=== PATIENT | female | born 1955 | race Caucasian/White ===

== ENCOUNTER → 2018-05-02 | Outpatient (CLI) | payer OTHER ==
[~2018-05-02] MED LIST: ASPI-757 PO; CEPH500T7 PO; FAMO20TA28 PO; FLUO-202 PO; GADOBENATE 529MG/1ML 15ML VIAL IVP ONE; LISI-362 PO
--- NOTE | 2018-05-02 10:08 | RADIOLOGY IMAGING REPORT ---
FACILITY: [facility] - [place] PATIENT NAME: Corinna Olivarez : 1955 MR: [id number] V: [id number] EXAM DATE: ORDERING PHYSICIAN: ROSALVA BRYAN TECHNOLOGIST: Location: [facility] [place] Patient: Corinna Olivarez : 1955 Visit/Account:[id number] Date of Sevice: 05/02/2018 Study: MRI of the brain without and with gadolinium contrast. Indication: Exophthalmos of the left eye. Comparison study: None Contrast used: 11 mL MultiHance gadolinium contrast Technique: Multiplanar MRI sequences were obtained through the brain before and after the administrat ion of gadolinium contrast. The examination demonstrates no evidence of acute intracranial hemorrhage. There is no evidence of ex tra-axial collection or hydrocephalus. There is no abnormal signal identified within the brain parenchyma. The pituitary gland is unremarkable in appearance. There is no evidence of abnormality of the pineal gland. A diffusion-weighted sequence was performed and demonstrates no evidence of active ischemia. There is no evidence of active infarct There appears to be mild exophthalmos of the left globe. The orbits are otherwise unremarkable. There is a large retention cyst within the left maxillary sinus. There is mucosal thickening within t he maxillary antra bilaterally. Following the administration of gadolinium contrast, there is no abnormal intracranial contrast enhan cement. IMPRESSION:Unremarkable MRI of the brain without and with intravenous contrast. Report Dictated By: Erick Massey at 05/02/2018 9:53 AM Report E-Signed By: Erick Massey at 05/02/2018 10:04 AM WSN:[id number]
== END ==
LOC: MRI 02:10
PROVIDERS: ATTEND Emergency Medicine
DX: H05.242 Constant exophthalmos, left eye (principal)
CPT/HCPCS: 70553; A9577

== ENCOUNTER → 2018-05-22 | Outpatient (CLI) | payer OTHER ==
[~2018-05-22] MED LIST changes: -GADOBENATE 529MG/1ML 15ML VIAL IVP ONE
--- NOTE | 2018-05-28 16:46 | RADIOLOGY IMAGING REPORT ---
FACILITY: [facility] - [place] PATIENT NAME: HANNA MCKEON : [id number] MR: [id number] V: [id number] EXAM DATE: [id number] ORDERING PHYSICIAN: ROSALVA BRYAN TECHNOLOGIST: Cora Moreno PROCEDURE:BILATERAL DIGITAL SCREENING MAMMOGRAM WITH CAD ASSISTED INTERPRETATION & 3D TOMOSYNTHESIS COMPARISON:None. INDICATIONS:Baseline Screening FINDINGS: The breasts are heterogeneously dense. A rounded density is present along the medial superior Right breast consistent with a skin mole. Benign appearing asymmetries are scattered bilaterally. DIAGNOSTIC CATEGORY 1--NEGATIVE. RECOMMENDATIONS: ROUTINE MAMMOGRAM AND CLINICAL EVALUATION IN 1 YR. IMPRESSION: BIRADS 1: Negative. Dictated by: Michi Jj M.D. on 05/23/2018 at 13:12 Transcribed by: YAYO on 05/23/2018 at 13:50 Approved by: Christen Lopes M.D. on 05/28/2018 at 16:45 [facility]
== END ==
LOC: MAMO 00:48
PROVIDERS: ATTEND Emergency Medicine
DX: Z12.31 Encounter for screening mammogram for malignant neoplasm of breast (principal)
CPT/HCPCS: 77063; 77067